=== PATIENT | male | born 1955 | race Caucasian/White ===

== ENCOUNTER 2019-12-18 18:11 | Inpatient (IN) | payer MEDICARE ==
[2019-12-18] VITALS (7 sets, daily range): BP systolic 124–140; BP diastolic 62–71; PULSE 68–79; TEMP 97.6
[2019-12-18] MEDS ORDERED: CAPSAICIN0.025% TOP (18:13)
[2019-12-18] MEDS ORDERED: NEURONTIN300 MG/CAP PO ×2 (18:14→18:16)
[2019-12-18] MEDS ORDERED: COREG12.5 MG PO (18:14)
[2019-12-18] MEDS ORDERED: GLUCOPHAGE XR500 M1 PO (18:17)
[2019-12-18] MEDS ORDERED: CRESTOR40 MG PO (18:18)
[2019-12-18] MEDS ORDERED: VIAGRA100 M1 PO (18:19)
[2019-12-18] MEDS ORDERED: ASPIRIN 32325 MG/TAB PO (18:20)
[2019-12-18] MEDS ORDERED: FLOMAX 0.40.4 MG/CAP PO (18:20)
[2019-12-18] MEDS ORDERED: OMEGA-3 1000 MG1 CAP PO (18:21)
[2019-12-19] VITALS (8 sets, daily range): BP systolic 103–138; BP diastolic 49–72; PULSE 58–74; TEMP 97.4–97.8
[2019-12-19 07:49] LABS: CALCIUM 8.8 mg/dL (8.4-10.2); CREATININE, serum 3.95 (0.66-1.25)
[2019-12-19 07:53] LABS: POTASSIUM 5.8 mmol/L (3.4-5.0)
--- NOTE | 2019-12-19 10:03 | NUR ---
Sitting up in bed with eyes open. Denies pain. Jhaveri to dependent drainage draining dark red urine. Patient denies needs at this time.
--- NOTE | 2019-12-19 11:27 | NUR ---
Practical Nursing Faculty met with patient to discuss discharge planning. Patient lives in [place] with his [place] (ph#[phone]). Patient's primary care physician is Dr. Gibson and he has his medications mailed to him by the [facility]. Patient has a cane, walker, and CPAP that he uses at home. Patient reports independence with ADLS but that it has become more difficult for him to get into his shower. Patient states he is considering putting in a walk in tub. Patient states he would like to update his DPOA paperwork. MERLYN provided a blank form which patient filled out independently. MERLYN and Norma BRICENO provided witness signature. MERLYN provided original and copies to patient then placed copy in patient's chart. Patient plans to return home upon discharge. No additional needs at this time.
[2019-12-19 11:50] LABS: PH 6 (5-8); SQUAMOUS EPITHELIAL None Seen /hpf; URINE APPEARANCE Cloudy; URINE BACTERIA Rare /hpf; URINE BILIRUBIN Negative (NEGATIVE); URINE BLOOD 3+ (NEGATIVE); URINE COLOR Red; URINE GLUCOSE 2+ (NEGATIVE); URINE KETONE Negative (NEGATIVE); URINE LEUKOCYTE ESTERASE 1+ (NEGATIVE); URINE NITRATE Negative (NEGATIVE); URINE PROTEIN(semi-quant) 2+ (NEGATIVE); URINE RBC >50 /hpf; URINE UROBILINOGEN Negative (NEGATIVE)
[2019-12-19 12:03] LABS: COLLECTION METHOD CATHETER
[2019-12-19 12:12] LABS: HEMOGLOBIN 11.3 g/dl (13.5-18.0); MEAN CELL VOLUME 89 fl (80.0-100.0); MEAN CORPUSCULAR HEMOGLOBIN 27 pg (27.0-31.0); MEAN CORPUSCULAR HGB CONC 31 g/dl (33.0-37.0); MEAN PLATELET VOLUME 10.6 fl (7.4-10.4); PLATELET COUNT 156 K/mm3 (130-400); RED BLOOD COUNT 4.12 M/mm3 (4.20-5.60); REDCELL DISTRIBUTION WIDTH-CV 14.2 % (11.5-14.5)
[2019-12-19 12:15] LABS: HEMATOCRIT 36.5 % (42.0-52.0)
[2019-12-19] MEDS ORDERED: ZESTRIL 10MG10 MG PO (13:08)
[2019-12-19 13:18] LABS: BAND 1 % (0-10); NEUTROPHILS 48 % (42.0-75.2)
[2019-12-19 13:24] LABS: LYMPHOCYTE 49 % (20.0-51.0)
[2019-12-19 13:25] LABS: BURR CELLS 1+; OVALOCYTES 1+; PLATELET ESTIMATE NORMAL (NORMAL)
[2019-12-19 13:26] LABS: POIKILOCYTOSIS 1+
--- NOTE | 2019-12-19 16:06 | NUR ---
Lying in bed with eyes open. Denies pain. Jhaveri to dependent drainage draining clear bloody urine. in room with the patient. Patient denies further needs.
--- NOTE | 2019-12-19 18:01 | NUR ---
Asked patient if he would like to get up to ambulate in halls. Patient declines at this time. Says that he does not feel comfortable walking in the halls with his bag, he does not want everyone to see it. Explained importance of ambulating to keep circulation, strength, and lungs open. Patient says that possibly tonight he would be more willing to get up to the bathroom and then ambulate in the halls. remains in room with the patient. Patient denies needs at this time.
[2019-12-20 05:19] VITALS: BP 109/72; PULSE 59; TEMP 97.5
--- NOTE | 2019-12-20 06:11 | NUR ---
Pt is currently sleeping in bed. Pt urine is still pink tinged. The urine was a little darker during moring rounds. Pt had 1750 output from his daniels at this time. Pt did have a soft formed bowel movement during the shift. Pt did ambulate to the restroom and he had no pain at this time. I did remove the pt stat-lock he stated that it was pulling. Cath care was provided and the new stat- lock was placed on his inner thigh on his right leg. Pt has his call light within reach and his bed is in lowest position
[2019-12-20 07:15] LABS: HEMOGLOBIN 10.8 g/dl (13.5-18.0); MEAN CELL VOLUME 87 fl (80.0-100.0); MEAN CORPUSCULAR HEMOGLOBIN 27 pg (27.0-31.0); MEAN CORPUSCULAR HGB CONC 32 g/dl (33.0-37.0); MEAN PLATELET VOLUME 10.3 fl (7.4-10.4); PLATELET COUNT 155 K/mm3 (130-400); RED BLOOD COUNT 3.94 M/mm3 (4.20-5.60); REDCELL DISTRIBUTION WIDTH-CV 14.2 % (11.5-14.5)
[2019-12-20 07:18] LABS: CALCIUM 8.4 mg/dL (8.4-10.2); CREATININE, serum 3.22 (0.66-1.25); POTASSIUM 5.2 mmol/L (3.4-5.0)
[2019-12-20 07:19] LABS: HEMATOCRIT 34.3 % (42.0-52.0)
[2019-12-20 07:47] VITALS: BP 110/49; PULSE 70; TEMP 97.6
--- NOTE | 2019-12-20 08:00 | NUR ---
Patient in bed resting. Alert and oriented x 3. Assessment complete. Jhaveri to dependent drainge with pink tinged urine in bag. states occassional bladder spasm. Small clot noted in tubing. Fluids infusing per orders. Denies pain or further needs at this time.
[2019-12-20 08:13] LABS: BAND 4 % (0-10); EOSINOPHIL 1 % (0-4); LYMPHOCYTE 57 % (20.0-51.0); NEUTROPHILS 36 % (42.0-75.2); PLATELET ESTIMATE NORMAL (NORMAL)
[2019-12-20 08:14] LABS: OVALOCYTES 1+
[2019-12-20 08:50] LABS: PATHOLOGY DIFF REVIEW OK
--- NOTE | 2019-12-20 11:51 | NUR ---
First visit from the environmental engineering intern. No needs right now.
[2019-12-20 16:09] VITALS: BP 133/53; PULSE 61; TEMP 97.9
--- NOTE | 2019-12-20 18:27 | NUR ---
Patient has done well throughout the day. Minimal needs. continues to complain of bladder spasms, levsin given per orders. Offered B&O suppository, patient refused. Jhaveri maintained to dependent drainage with pink urine noted, occassional small clots noted in line. Fluids infusing per orders. Denies further needs at this time. Will report off to cage shift manager.
[2019-12-20 19:41] VITALS: BP 148/67; PULSE 63; TEMP 97.8
--- NOTE | 2019-12-20 21:00 | NUR ---
Pt doing ok. Alert and oriented with VSS. Heart and lung sounds normal. Bowel sounds aud all quad. Pt has daniels cath to depend drainainge, red-tinged urine. Good output. Pt has IV to R forearm with d5 running. Pt has not had BM but is passing gas. Pedal pulses present. Pt denies needs, call light within reach, will coninue to monitor
[2019-12-20 23:43] VITALS: BP 127/67; PULSE 65; TEMP 98.3
--- NOTE | 2019-12-21 00:03 | NUR ---
Pt IV infiltrated. 22g restarted in L hand
[2019-12-21 04:40] VITALS: BP 121/65; PULSE 64; TEMP 97.4
--- NOTE | 2019-12-21 06:14 | NUR ---
Pt has done well throughout night. Slept well. Jhaveri to dep drainage. REd-tinged urine, no clots noted. Has cleared up since last night. Call light within reach, will continue to monitor
[2019-12-21 06:22] LABS: HEMOGLOBIN 10.9 g/dl (13.5-18.0); MEAN CELL VOLUME 87 fl (80.0-100.0); MEAN CORPUSCULAR HEMOGLOBIN 28 pg (27.0-31.0); MEAN CORPUSCULAR HGB CONC 32 g/dl (33.0-37.0); PLATELET COUNT 146 K/mm3 (130-400); REDCELL DISTRIBUTION WIDTH-CV 14.6 % (11.5-14.5)
[2019-12-21 06:50] LABS: CALCIUM 8.4 mg/dL (8.4-10.2); CREATININE, serum 2.54 (0.66-1.25); POTASSIUM 5.3 mmol/L (3.4-5.0)
[2019-12-21 06:59] LABS: EOSINOPHIL 2 % (0-4); LYMPHOCYTE 69 % (20.0-51.0); METAMYELOCYTE 1 % (0-0); NEUTROPHILS 26 % (42.0-75.2)
[2019-12-21 08:05] VITALS: BP 129/63; PULSE 71; TEMP 97.5
[2019-12-21 11:26] VITALS: BP 132/66; PULSE 57; TEMP 97.5
[2019-12-21 16:24] VITALS: BP 136/75; PULSE 72; TEMP 98
--- NOTE | 2019-12-21 17:04 | NUR ---
Patient showered independently, ambulated to doorway and back to bed. steady gait.
--- NOTE | 2019-12-21 18:28 | NUR ---
Patient has done well thoughout the day. Has been up ambulating in room throughout the day. States numbness to LLE, states this is chronic. Daniels maintined to depdent drainage with pink urine present throughout the day. Patient educated on daniels care and how to empty daniels bag. Denies further needs at this this time. Will report off to night baker.
[2019-12-21 20:19] VITALS: BP 140/70; PULSE 65; TEMP 97.8
--- NOTE | 2019-12-21 20:19 | NUR ---
Pt doing well this evening. Resting in bed upon entry. Alert and oriented with vss. heart and lung sounds normal, on tele-normal sinus. PT bowel sounds aud all quad. Jhaveri in place, clear red-tinged urine. PT denies pain, states he feels good. Took pm meds fine. Denies needs, call light within reach, will continue to monitor
[2019-12-22 00:26] VITALS: BP 113/72; PULSE 71; TEMP 97.7
[2019-12-22 03:37] VITALS: BP 128/65; PULSE 66; TEMP 97.6
--- NOTE | 2019-12-22 04:55 | NUR ---
Pt has had uneventful night. No complaints. Slept well. Denies needs. Call light within reach, will continue to monitor
[2019-12-22 06:03] LABS: HEMOGLOBIN 10.9 g/dl (13.5-18.0); MEAN CELL VOLUME 87 fl (80.0-100.0); MEAN CORPUSCULAR HEMOGLOBIN 28 pg (27.0-31.0); MEAN CORPUSCULAR HGB CONC 32 g/dl (33.0-37.0); MEAN PLATELET VOLUME 9.9 fl (7.4-10.4); PLATELET COUNT 155 K/mm3 (130-400); RED BLOOD COUNT 3.91 M/mm3 (4.20-5.60); REDCELL DISTRIBUTION WIDTH-CV 14.5 % (11.5-14.5)
[2019-12-22 06:13] LABS: CALCIUM 8.3 mg/dL (8.4-10.2); CREATININE, serum 2.22 (0.66-1.25); POTASSIUM 5.3 mmol/L (3.4-5.0)
[2019-12-22 07:06] VITALS: BP 129/68; PULSE 63; TEMP 98
--- NOTE | 2019-12-22 08:06 | NUR ---
Patient in bed eating breakfast. Alert and oriented x 3. Assessment complete. Jhaveri to dependent drainage with clear pink urine in bag. Fluids infusing per orders to left hand IV. Denies pain at this time. Refuses BP meds at this time. Denies further needs at this time.
[2019-12-22 08:21] LABS: LYMPHOCYTE 68 % (20.0-51.0); NEUTROPHILS 30 % (42.0-75.2)
[2019-12-22 08:22] LABS: OVALOCYTES 1+; PLATELET ESTIMATE NORMAL (NORMAL)
[2019-12-22 11:23] VITALS: BP 129/78; PULSE 70; TEMP 97.8
--- NOTE | 2019-12-22 13:40 | NUR ---
Patient sitting up in recliner.
[2019-12-22 16:12] VITALS: BP 142/69; PULSE 66; TEMP 97.8
--- NOTE | 2019-12-22 17:28 | NUR ---
Patient has done well throughout the day. Has been up ambulating in halls and up to recliner throughout the day. Denies pain. Jhaveri continues draining clear pink urine. Denies further needs at this time. will report off to night assistant.
--- NOTE | 2019-12-22 18:27 | NUR ---
Patient up ambulating in halls.
--- NOTE | 2019-12-22 19:15 | NUR ---
Received report from JANAK Mitchell. Pt was lying in bed at this time. We repositioned him at this time. Pt did stat that his pain was at a 6 out of 10 in pain and requested to have something for pain. Pt vitals were all within normal limits. Pt lungs sounds were clear and heart sounds were normal S1 and S2 sounds. All findings see on shift assessment. Pt did have some light bruisig on his right foot, bruising on his right shoulder. His dressing was clean dry and intact. Pt did not want a snack at this time. Pts urine was dark yellow so fluids were encourged at this time. Will follow up with pts pain and bring him pain medication. Pt call light is within reach and his bed is in lowest position and his bed alarm is on
--- NOTE | 2019-12-22 19:25 | NUR ---
Pt rated his pain a 6 out of 10 at this time. Pt was given one [place] at this time. Will follow up with pt and see if his pain is better. Pt has his call light within reach and his bed is in lowest position and his bed alarm is on
[2019-12-22 20:01] VITALS: BP 148/68; PULSE 63; TEMP 98.4
[2019-12-23 00:07] VITALS: BP 143/69; PULSE 72; TEMP 98.7
--- NOTE | 2019-12-23 02:43 | NUR ---
Received report from JANAK Johnson. Pt had no abnormal findings during the assessment. Pt daniels was empitied at this time and charted. Urine is a pink tinged color. Pt stated that he has not had any pain. He took his evening medication well. Pt stated that he was very tired and was ready for bed. Pt has had no complaints of pain during the night. Pt has been resting well during the night. Pt is easy to arouse for vitals. Pt has is call light within reach and bed is in lowest position
[2019-12-23 03:44] VITALS: BP 104/53; PULSE 74; TEMP 98
[2019-12-23 07:07] LABS: HEMATOCRIT 39.4 % (42.0-52.0); HEMOGLOBIN 12.6 g/dl (13.5-18.0); MEAN CELL VOLUME 88 fl (80.0-100.0); MEAN CORPUSCULAR HEMOGLOBIN 28 pg (27.0-31.0); MEAN CORPUSCULAR HGB CONC 32 g/dl (33.0-37.0); MEAN PLATELET VOLUME 10.3 fl (7.4-10.4); PLATELET COUNT 227 K/mm3 (130-400); RED BLOOD COUNT 4.48 M/mm3 (4.20-5.60); REDCELL DISTRIBUTION WIDTH-CV 14.6 % (11.5-14.5)
[2019-12-23 07:08] VITALS: BP 158/80; PULSE 96; TEMP 97.9
--- NOTE | 2019-12-23 07:11 | NUR ---
Pt ambulated down the rivero with me this morning. Pt tolerated this walk with no complaints of pain. He stated that if felt really good to be able to ambulate. His urine is still pink tinged. He has no complaints of pain at this time. Pt has his call light within reach and his bed is in lowest position. Reported off to JANAK Velazco.
[2019-12-23 07:22] LABS: CALCIUM 9.2 mg/dL (8.4-10.2); CREATININE, serum 2.22 (0.66-1.25)
--- NOTE | 2019-12-23 07:27 | NUR ---
CRITICAL LAB REULT OF 21.9 CALLED TO [facility]. NO ORDERS GIVEN AT THIS TIME.
--- NOTE | 2019-12-23 07:45 | NUR ---
DISCONTINUE FLAVIO THIS AM TORB TO THIS NURSE.
--- NOTE | 2019-12-23 08:30 | NUR ---
PATIENT SITTING UP IN CHAIR. PATIENT A&OX4. VSS. TELE IN PLACE. BOWEL SOUNDS ACTIVE. PATIENT TOLERATING DIET. INDWELLING MUNIZ CATHETER DRAINING CLEAR PINK URINE TO MUNIZ BAG. TRACE EDEMA TO FEET BILATERALLY. MUNIZ CATHETER DISCONTINUED PER DOCTOR ORDER. 10 MLS OF STERILE WATER ASPIRATED FROM BALLOON. TIP INTACT. PERICARE PROVIDED. PATIENT HAD DISCOMFORT WITH MUNIZ REMOVAL. PATIENT GIVEN PRN DOSE OF PO PAIN MEDICATION. CALL LIGHT WITHIN REACH. PATIENT DENIES ANY NEEDS AT THIS TIME.
[2019-12-23 09:43] LABS: BAND 2 % (0-10); EOSINOPHIL 3 % (0-4); NEUTROPHILS 31 % (42.0-75.2); PLATELET ESTIMATE NORMAL (NORMAL)
[2019-12-23 09:44] LABS: LYMPHOCYTE 60 % (20.0-51.0)
[2019-12-23 11:21] VITALS: BP 121/63; PULSE 70; TEMP 97.5
--- NOTE | 2019-12-23 13:20 | NUR ---
LEFT HAND INT DISCONTINUED PER PENDING DISCHARGE. PATIENT TOLERATED WELL. DISCHARGE INSTRUCTIONS REVIEWED WITH PATIENT. ALL QUESTIONS ANSWERED. PATIENT PERSONAL BELONGINGS GATHERED. PATIENT AMBULATED WITH SURGICAL STAFF TO PERSONAL VEHICLE. PATIENT DISCHARGED.
== END 2019-12-23 13:25 | disposition home or self-care (01) | DRG 660 ==
LOC: SDCO 18:11 → SURG 18:11 → SDCO 12-19 11:56 → SURG 12-19 11:57
PROVIDERS: Nurse Practitioner Family; Physician Assistant; ADMIT Urology
PROC: 0T788DZ Dilation of Bilateral Ureters with Intraluminal Device, Via Natural or Artificial Opening Endoscopic (ICD-10-PCS; principal; 2019-12-18 19:00)
PROC: BT141ZZ Fluoroscopy of Kidneys, Ureters and Bladder using Low Osmolar Contrast (ICD-10-PCS; 2019-12-18 19:00)
DX: N17.9 Acute kidney failure, unspecified (principal); N20.1 Calculus of ureter; C91.10 Chronic lymphocytic leukemia of B-cell type not having achieved remission; N39.0 Urinary tract infection, site not specified; E11.40 Type 2 diabetes mellitus with diabetic neuropathy, unspecified; Z87.891 Personal history of nicotine dependence; Z88.2 Allergy status to sulfonamides; Z88.8 Allergy status to other drugs, medicaments and biological substances; E11.22 Type 2 diabetes mellitus with diabetic chronic kidney disease; I12.9 Hypertensive chronic kidney disease with stage 1 through stage 4 chronic kidney disease, or unspecified chronic kidney disease; N18.9 Chronic kidney disease, unspecified; E78.5 Hyperlipidemia, unspecified; E87.5 Hyperkalemia; D69.6 Thrombocytopenia, unspecified
CPT/HCPCS: OP; 99223; 99232-AI; A4216; C1769; C2617; J0696; J1100; J1815; J2405; J2704; J3010; J7030; Q9967

== ENCOUNTER 2020-01-08 07:13 | Day surgery (SDC) | payer MEDICARE, OTHER ==
[~2020-01-08] VITALS: Ht 185.4 cm; Wt 109.9 kg
[~2020-01-08 07:13] MED LIST: ASPIRIN 32325 MG/TAB PO; CAPSAICIN0.025% TOP; COREG12.5 MG PO; CRESTOR40 MG PO; FLOMAX 0.40.4 MG/CAP PO; GLUCOPHAGE XR500 M1 PO; NEURONTIN300 MG/CAP PO; OMEGA-3 1000 MG1 CAP PO; VIAGRA100 M1 PO; ZESTRIL 10MG10 MG PO
[2020-01-08 07:53] VITALS: BP 146/76; PULSE 77; TEMP 97.7
[2020-01-08 08:02] LABS: CALCIUM 9.6 mg/dL (8.4-10.2); CREATININE, serum 2.29 (0.66-1.25); POTASSIUM 4.1 mmol/L (3.4-5.0)
--- NOTE | 2020-01-08 08:14 | NUR ---
TO RM AT 0718 AMBULATING WITH A CANE. CALL LIGHT IN REACH AND IN CAR WAITING TO TAKE PATIENT HOME UPON DISCHARGE.
--- NOTE | 2020-01-08 09:17 | NUR ---
RECEIVED CALL FROM AND SHE HAS BEEN UPDATED.
[2020-01-08 10:27] VITALS: BP 139/65; PULSE 62; TEMP 97.9
--- NOTE | 2020-01-08 10:27 | NUR ---
TO RM 7 PER CART FROM PACU. ALERT ORIENTED X3 AND TALKING WITH STAFF. PATIENT VOIDED IN PACU. DENIES PAIN OR DISCOMFORT AT THIS TIME. DENIES NAUSEA OR VOMITING.
[2020-01-08 10:30] VITALS: BP 146/75; PULSE 58
--- NOTE | 2020-01-08 10:30 | NUR ---
RECEIVED OJ AND TOAST/BUTTER-JELLY. ELEVATED HOB. IV PATENT. CONTINUES TO DENY PAIN OR DISCOMFORT.
[2020-01-08] MEDS ORDERED: PYRIDIUM 100MG100 MG PO (10:39)
[2020-01-08] MEDS ORDERED: NORCO 325 MG-51 TAB PO (10:40)
[2020-01-08 10:45] VITALS: BP 144/66; PULSE 63
--- NOTE | 2020-01-08 10:45 | NUR ---
ATE 100% AND TOLERATED WELL.
[2020-01-08 11:00] VITALS: BP 128/62; PULSE 64
--- NOTE | 2020-01-08 11:00 | NUR ---
PATIENT QUIETLY WATCHING TV. DENIES THE URGE TO URINATE AT THIS TIME.
--- NOTE | 2020-01-08 11:13 | NUR ---
Updated of patient's progress.
--- NOTE | 2020-01-08 11:30 | NUR ---
VOIDED 100CC OF LIGHT COLORED HEMATURIA. RECEIVED DISCHARGE INSTRUCTIONS AND VERBALIZED UNDERSTANDING. DISCONTINUED IV AND INT- CATHETER INTACT. CALLED TO HAVE PATIENT PICKED UP AT ER ENTRANCE. DISCHARGED WITH URINAL PER PATIENT REQUEST OFFICE WILL CALL PATIENT WITH A FOLLOW UP TIME/DATE.
--- NOTE | 2020-01-08 11:37 | NUR ---
DISCHARGED PER WC BY NURSING STAFF TO PRIVATE CAR IN CARE OF CHRISTEL.
== END 2020-01-08 11:38 | disposition home or self-care (01) ==
LOC: SDCO 07:13
PROVIDERS: Nurse Anesthetist, Certified Registered
DX: N13.0 Hydronephrosis with ureteropelvic junction obstruction (principal); E11.22 Type 2 diabetes mellitus with diabetic chronic kidney disease; I12.9 Hypertensive chronic kidney disease with stage 1 through stage 4 chronic kidney disease, or unspecified chronic kidney disease; N18.9 Chronic kidney disease, unspecified; E11.40 Type 2 diabetes mellitus with diabetic neuropathy, unspecified; E87.5 Hyperkalemia; G47.33 Obstructive sleep apnea (adult) (pediatric); Z87.891 Personal history of nicotine dependence; Z79.899 Other long term (current) drug therapy; Z79.82 Long term (current) use of aspirin
CPT/HCPCS: C1769; J0690; J1100; J1885; J2405; J2704; J3010; J7030

== ENCOUNTER 2020-04-08 12:33 | Day surgery (SDC) | payer MEDICARE, OTHER ==
[~2020-04-08] VITALS: Ht 185.4 cm; Wt 109.2 kg
[~2020-04-08 12:33] MED LIST changes: +MACRODANTIN100 PO; +MACRODANTIN50 MG/CA1 PO; +NORCO 325 MG-51 TAB PO; +PYRIDIUM 100MG100 MG PO
[2020-04-08 13:08] VITALS: BP 137/73; PULSE 64; TEMP 97.5
[2020-04-08 17:20] VITALS: BP 160/62; PULSE 63; TEMP 97.3
--- NOTE | 2020-04-08 17:20 | NUR ---
TO RM 5 PER CART FROM PACU. ALERT ORIENTED X3,TALKING TO STAFF. DENIES PAIN OR DISCOMFORT AT CURRENT TIME. DENIES NAUSEA OR VOMITING. RECEIVED GRAPE JUICE. MUNIZ CATHETER HAS BLOODY URINE.
[2020-04-08] MEDS ORDERED: BACITRACIN TOPIC1 TU TOP (17:22)
[2020-04-08] MEDS ORDERED: NORCO 325 MG-51 TAB PO (17:22)
[2020-04-08 17:35] VITALS: BP 163/67; PULSE 50
--- NOTE | 2020-04-08 17:35 | NUR ---
RECEIVED A SECOND GLASS OF GRAPE JUICE.
[2020-04-08 17:50] VITALS: BP 156/74; PULSE 51
--- NOTE | 2020-04-08 17:50 | NUR ---
PATIENT SATS 92 % AND ENCOURAGED PATIENT TO TAKE A DEEP BREATHS . AFTER A FEW DEEP BREATHS SATS 98%.
[2020-04-08 18:00] VITALS: BP 161/59; PULSE 45
--- NOTE | 2020-04-08 18:12 | NUR ---
REPORT GIVEN TO AILEEN BRICENO
[2020-04-08 18:15] VITALS: BP 171/59; PULSE 52
--- NOTE | 2020-04-08 18:15 | NUR ---
Visit with patient in [place] [facility]. Pt taking food and drink well. Pt has no complaints. Discussing discharge, the pt requests that we go over all discharge information with his at her car (due to no visitor restrictions in place) when the patient is transferred out of the hospital.
--- NOTE | 2020-04-08 18:40 | NUR ---
Pt transferred out of hospital via wheelchair and this RN to waiting private vehicle driven by .
--- NOTE | 2020-04-08 19:10 | NUR ---
Discharge instructions finished with pt, , and this RN. All questions answered to their satisfaction. Handed to pt are a thank you card, discharge instructions, diagnosis information, and a pt health summary. The office will call the pt to schedule his follow-up appt for Tuesday. Also given to pt are a leg bag, daniels drainage container, and multiple alcohol prep pads. Instructions on cath care and drainage bag switch (daniels bag to leg bag and vice versa) explained to pt and . Understanding voiced by both.
== END 2020-04-08 19:10 | disposition home or self-care (01) ==
LOC: SDCO 12:33
DX: A63.0 Anogenital (venereal) warts (principal); E78.00 Pure hypercholesterolemia, unspecified; J44.9 Chronic obstructive pulmonary disease, unspecified; G47.33 Obstructive sleep apnea (adult) (pediatric); G89.29 Other chronic pain; I12.9 Hypertensive chronic kidney disease with stage 1 through stage 4 chronic kidney disease, or unspecified chronic kidney disease; E11.22 Type 2 diabetes mellitus with diabetic chronic kidney disease; N18.9 Chronic kidney disease, unspecified; E11.42 Type 2 diabetes mellitus with diabetic polyneuropathy; Z88.2 Allergy status to sulfonamides; E66.9 Obesity, unspecified; Z88.8 Allergy status to other drugs, medicaments and biological substances; Z87.891 Personal history of nicotine dependence; Z68.32 Body mass index [BMI] 32.0-32.9, adult
CPT/HCPCS: J0690; J1100; J1170; J2405; J2704; J3010; J7030

== ENCOUNTER 2020-05-13 08:27 | Day surgery (SDC) | payer MEDICARE, OTHER ==
[~2020-05-13] VITALS: Ht 185.4 cm; Wt 108.0 kg
[~2020-05-13 08:27] MED LIST changes: +BACITRACIN TOPIC1 TU TOP
[2020-05-13] MEDS ORDERED: AMOXICILLIN 8751 TAB PO (09:21)
[2020-05-13 09:41] VITALS: BP 115/66; PULSE 63; TEMP 98.1
[2020-05-13 13:00] VITALS: BP 124/87; PULSE 64; TEMP 98.1
--- NOTE | 2020-05-13 13:00 | NUR ---
Pt to [facility] bay 6 via cart from PACU. Pt awake and alert. Pt rates pain 1/10 to groin. Dressing to groin is clean, dry and intact with mesh underwear in place. Juice and muffin given per pt request. Will continue to monitor. Call light within reach.
[2020-05-13 13:15] VITALS: BP 135/63; PULSE 66
--- NOTE | 2020-05-13 13:15 | NUR ---
Pt continues to rest. More juice given per pt request. Will continue to monitor. Call light within reach.
[2020-05-13 13:30] VITALS: BP 110/62; PULSE 66
--- NOTE | 2020-05-13 13:30 | NUR ---
Pt continues to rest. Tolerating food and po fluids without difficulties. Urine drianing to daniels bag is pale pink in color. Will continue to monitor.
[2020-05-13 13:45] VITALS: BP 104/49; PULSE 69
--- NOTE | 2020-05-13 13:45 | NUR ---
Pt continues to rest. Small amount of pale pink drainage noted to be seeping through 4x4's at tip of penis. Will change dressing prior to DC. Call light within reach.
[2020-05-13 14:00] VITALS: BP 109/53; PULSE 63
--- NOTE | 2020-05-13 14:00 | NUR ---
IV site discontinued with all parts intact. Dressing to glans penis changed, with new bacitracian ointment and silver silvadine cream applied. Education provided on dressing changes, changing to leg bag/daniels bag, and daniels care provided. Pt voices understanding. Pt requesting pain medication to home home with. Dr. Swian notified, and will come write pt a script. Pt up to dress. Will continue to monitor.
--- NOTE | 2020-05-13 14:57 | NUR ---
wrote script for [place] for pt to take at home PRN. Discharge instructions reviewed with pt and . Both voice understanding. Pt escorted to private car via wheel chair.
== END 2020-05-13 14:59 | disposition home or self-care (01) ==
LOC: SDCO 08:27
DX: A63.0 Anogenital (venereal) warts (principal); E11.9 Type 2 diabetes mellitus without complications; N28.9 Disorder of kidney and ureter, unspecified; I10 Essential (primary) hypertension; E78.00 Pure hypercholesterolemia, unspecified; R97.20 Elevated prostate specific antigen [PSA]; G47.33 Obstructive sleep apnea (adult) (pediatric); E66.9 Obesity, unspecified; Z79.899 Other long term (current) drug therapy; Z88.2 Allergy status to sulfonamides; Z88.8 Allergy status to other drugs, medicaments and biological substances; Z87.891 Personal history of nicotine dependence
CPT/HCPCS: J0690; J2370; J2405; J2704; J3010; J7030

== ENCOUNTER 2020-09-02 09:37 | Day surgery (SDC) | payer MEDICARE, OTHER ==
[2020-09-02] VITALS (9 sets, daily range): BP systolic 102–145; BP diastolic 50–88; PULSE 54–71; TEMP 98.2–98.3
[~2020-09-02] VITALS: Ht 185.4 cm; Wt 109.5 kg
[~2020-09-02 09:37] MED LIST changes: +AMOXICILLIN 8751 TAB PO
[2020-09-02] MEDS ORDERED: AMBIEN 5MG TABLE5 MG PO (10:11)
[2020-09-02 10:57] LABS: CALCIUM 9.4 mg/dL (8.4-10.2); CREATININE, serum 1.72 (0.66-1.25); POTASSIUM 4.4 mmol/L (3.4-5.0)
--- NOTE | 2020-09-02 12:26 | NUR ---
Patient is resting with eyes closed and spouse called to inform her that patient's surgery has been delayed.
[2020-09-02] MEDS ORDERED: NORCO 325 MG-51 TAB PO (14:47)
--- NOTE | 2020-09-02 15:47 | NUR ---
Patient returns to room 2 per cart and is awake and alert. Temp 97.6 and room air sats 96%. IV fluids infusing #18G RH of NS at TKO. CBI dripping to keep urine pink. Mesh panties in place and Silvadene cream noted on laser sites of penis. Taking sips of water. Denies pain or nausea at present time.
--- NOTE | 2020-09-02 16:02 | NUR ---
Room air sats 98%. CBI continues to drip to keep urine pink. Sipping on ice water.
--- NOTE | 2020-09-02 16:17 | NUR ---
Morphine 2mg given at 1616 for complaints of pain at 4/10. States the pain is intense.
--- NOTE | 2020-09-02 16:32 | NUR ---
Patient is resting and states that the Morphine was effective. Talking on his cell phone.
--- NOTE | 2020-09-02 16:47 | NUR ---
Resting comfortabley. No further complaints. CBI infusing and urine pink. IV infusing at TKO.
--- NOTE | 2020-09-02 16:56 | NUR ---
Patient transferred to room 331 with all personal belongings.
--- NOTE | 2020-09-02 17:30 | NUR ---
Patient arrived to Surgical 331 from PACU at this time, alert/oriented, vital signs stable, pain controlled, CBI running and output is light pink, patient tolerating CL diet/ will advance, denies other needs at this time and will cotninue to monitor
--- NOTE | 2020-09-02 19:45 | NUR ---
Resting in bed. Assessment complete. Lungs clear. Heart sounds normal. Bowels active x4. Pulses present throughout. Left lower extremity edema +1. Patient reports recent surgery to left foot. Dressing CDI at this time. Jhaveri with CBI currently. Output light pinkish with sediment. Jhaveri care complete and ointments per Dr. Díaz orders applied. Denies other needs at this time. Call light in reach. INT left hand without complications.
--- NOTE | 2020-09-02 23:24 | NUR ---
CBI pinkish red. Bags replaced. Will monitor.
--- NOTE | 2020-09-03 00:08 | NUR ---
Resting in bed. Denies needs. Call light in reach.
[2020-09-03 01:34] VITALS: BP 115/65; PULSE 61; TEMP 97.5
--- NOTE | 2020-09-03 03:59 | NUR ---
Resting in bed. CBI continues. Drilling Field Operator pnik/yellow. Rate decreased. Will monitor.
[2020-09-03 04:49] VITALS: BP 115/56; PULSE 60; TEMP 97.5
--- NOTE | 2020-09-03 05:41 | NUR ---
Patient CBI continued throughout night. Light pink this AM. Reported mild pains but denied need for intervention. Otherwise uneventful night. Resting in bed this AM. Call light in reach.
--- NOTE | 2020-09-03 07:18 | NUR ---
Report given to JANAK Velazco
[2020-09-03 08:33] VITALS: BP 116/74; PULSE 70; TEMP 97.6
--- NOTE | 2020-09-03 09:50 | NUR ---
PATIENT SHIFT ASSESSMENT COMPLETED AND AM MEDICATIONS ADMINISTERED AT THIS TIME. PATIENT REPORTS MILD DISCOMFRT RATED A 1-2/10 IN THE GROIN AND GENITALIA AT REST THAT INCREASES WHEN MOVING OR THE MUNIZ CATHETER IS TOUCHED. PATIENT A&OX4. VSS. EDEMA TO GENITALIA NOTED. INDWELLING 3-WAY MUNIZ CATHETER TO DEPENDENT DRAINAGE WITH CBI INFUSING AT A SLOW RATE. PEACH COLORED DRAINAGE PRESENT WITH MUCOUS IN THE MUNIZ BAG. CATHETER AND CHAR-CARE PROVIDED AT THIS TIME. OINTMENTS APPLIED. 4X4 GAUZE APPLIED UNDER TESTICLES TO ELEVATE THE AREA AND REDUCE SWELLING. MESH PANTIES IN PLACE. CBI DISCONTINUED AT THIS TIME AND CATHETER PLUGGED. PATIENT EDUCATED ON CATHETER CARE FOR DISCHARGING HOME WITH MUNIZ IN PLACE. PATIENT REPORTS ATHLETES FOOT TO LEFT FOOT. LEFT FOOT IS DRESSED WITH GAUZE AND VENICE WRAP. SOCKS CHANGED. INT TO LEFT HAND. CALL LIGHT WITHIN REACH. PATIENT DENIES ANY OTHER NEEDS AT THIS TIME. PATIENT IS WAITING TO HEAR FROM HIS FOR DISCHARGE LATER TODAY.
--- NOTE | 2020-09-03 11:52 | NUR ---
First visit from the wood heel fitter machine. No needs right now.
[2020-09-03 12:00] VITALS: BP 127/60; PULSE 62; TEMP 98.1
--- NOTE | 2020-09-03 13:35 | NUR ---
SW met with the patient to discuss discharge plan. The patient lives in [place] with his , Gris (ph#[phone]). He reports independence with ADLs and has a cane, FWW, 4WW, and wheelchair. He states that he has been receiving home health from [facility] for dressing changes. The patient's civilian PCP is Dr. Mark Kim and he also goes to the [facility]. He receives his medications from [facility] in [place] and from the [place]. The patient's DPOA-HC is in EMR and it designates his and daughter, Arin Thomas (ph#[phone]). The patient plans to return home with his upon discharge today and resume home health services from [facility]. No additional needs at this time.
--- NOTE | 2020-09-03 14:30 | NUR ---
LEFT HAND INT DISCONTINUED PER PENDING DISCHARGE. TIP INTACT. PATIENT TOLERATED WELL. DISCHARGE INSTRUCTIONS REVIEWED. PATIENT PERSONAL BELONINGS GATHERED. PATIENT TAKEN TO PERSONAL VEHICLE VIA WHEELCHAIR. PATIENT DISCHARGED.
== END 2020-09-03 14:30 | disposition home or self-care (01) ==
LOC: SDCO 09:37 → JCC 14:45 → SDCO 09-03 14:30
PROVIDERS: Nurse Anesthetist, Certified Registered
DX: A63.0 Anogenital (venereal) warts (principal); N40.1 Benign prostatic hyperplasia with lower urinary tract symptoms; R39.14 Feeling of incomplete bladder emptying; R39.12 Poor urinary stream; R35.1 Nocturia; E11.22 Type 2 diabetes mellitus with diabetic chronic kidney disease; N18.9 Chronic kidney disease, unspecified; I12.9 Hypertensive chronic kidney disease with stage 1 through stage 4 chronic kidney disease, or unspecified chronic kidney disease; Z20.828 Contact with and (suspected) exposure to other viral communicable diseases; E78.00 Pure hypercholesterolemia, unspecified; E66.9 Obesity, unspecified; Z88.2 Allergy status to sulfonamides; Z88.8 Allergy status to other drugs, medicaments and biological substances; Z87.891 Personal history of nicotine dependence; Z85.6 Personal history of leukemia
CPT/HCPCS: OP; J0690; J1100; J1170; J2270; J2405; J2704; J3010; J7030

== ENCOUNTER 2020-09-16 14:16 | Outpatient (CLI) | payer MEDICARE, OTHER ==
[~2020-09-16] VITALS: Ht 185.4 cm; Wt 109.0 kg
[~2020-09-16 14:16] MED LIST changes: +AMBIEN 5MG TABLE5 MG PO
[2020-09-16 15:18] VITALS: BP 116/64; PULSE 70; TEMP 98.3
--- NOTE | 2020-09-16 15:54 | NUR ---
Pt presented by wheelchair for scheduled instillation of 5FU. Pt reports that his original daniels came out and orders for reinsertion were recieved. Pt was concerned about size of balloon being used but after call to Dr Brunson' office, the ordered size was verified correct. Assessment was completed, consent reviewed and signed and printed information was provided and reviewed regarding chemotherapy precautions to be followed at home. #16 fr/10cc coude tip cathweter was inserted with initial return of slightly pink urine followed by pale yellow, clear urine draining into drainage bag.. Catheter was clamped and 5FU was instilled at 1510 using chemotherapy PPE and precautions. Pt tolerated instillation well. Has been repositioning every 15 minutes with encouragement.
--- NOTE | 2020-09-16 16:42 | NUR ---
Patient has completed the 1 hour dwell time and the bladder was drained by unclamping the drainage bag and draining 400ml of clear, light yellow urine. No bleeding noted although pt did have pinkish colored urine immediately after daniels was inserted which cleared quickly. Reviewed chemotherapy precautions again with pt and provided chemotherapy tested gloves to use at home with 5FU and an extra drainage bag for daniels. Chemotherapy urine was drained and then bag exchange was done and chemotherapy urine was disposed of in red bag and placed in yellow container. Pt assisted with clothing. He was transported to his 's car by wheelchair and discharged in stable condition.
== END 2020-09-16 16:30 | disposition home or self-care (01) ==
LOC: EUO 14:16
DX: A63.0 Anogenital (venereal) warts (principal); N36.9 Urethral disorder, unspecified
CPT/HCPCS: J9190

== ENCOUNTER 2020-12-09 11:57 | Day surgery (SDC) | payer MEDICARE, OTHER ==
[~2020-12-09] VITALS: Ht 185.4 cm; Wt 121.4 kg
[2020-12-09 12:29] VITALS: BP 126/73; PULSE 71; TEMP 97.5
[2020-12-09] MEDS ORDERED: PRIL40 PO (12:53)
--- NOTE | 2020-12-09 12:54 | NUR ---
TO RM 5 AT 12:03- CALL LIGHT IN REACH
[2020-12-09 15:15] VITALS: BP 127/60; PULSE 62; TEMP 97.3
--- NOTE | 2020-12-09 15:15 | NUR ---
PATIENT TRANSPORTED PER CART FROM PACU TO BAY 5 ACCOMPANIED BY STERILE PROCESSING TECH. PATIENT ALERT AND TALKING WITH STAFF. PATIENT DRINKING WATER. DENIES DISCOMFORT AND NAUSESA. MONITORS APPLIED. VSS ON ROOM AIR. 1520 PATIENT GIVEN OJ AND COFFEE AND MUFFIN.
[2020-12-09 15:30] VITALS: BP 126/74; PULSE 60
[2020-12-09 15:45] VITALS: BP 142/62; PULSE 61
--- NOTE | 2020-12-09 15:46 | NUR ---
VSS ON ROOM AIR. PATIENT TOLERATES MUFFIN AND DRINKS WITHOUT PROBLEMS. PATIENT DENIES DISCOMFORT AND NAUSEA. PATIENT GIVEN 4 LITER DEPENDENT DRAINAGE BAG, 10CC SYRINGE, ANTIBIOTIC OINTMENT AND URINAL TO TAKE HOME. CALLED AND GIVEN UPDATE.
--- NOTE | 2020-12-09 15:50 | NUR ---
PATIENT TALKS WITH STAFF. IV DC'D WITH CATHETER TIP INTACT. PRESSURE AND BANDAGE APPLIED. DISCHARGE INSTRUCTIONS GIVEN VERBAL AND DISCHARGE PACKET PROVIDED. QUESTIONS ANSWERED AND PATIENT VOICED UNDERSTANDING.
--- NOTE | 2020-12-09 16:00 | NUR ---
PATIENT'S LEG BAG EMPTIED. ACCIDENTLY SPILLED. PATIENT CLEANED. PATIENT CHANGES INTO STREET CLOTHES. PATIENT DISCHARGED PER WHEEL CHAIR TO PRIVATE VECHILE DRIVEN BY .
== END 2020-12-09 16:06 | disposition home or self-care (01) ==
LOC: SDCO
DX: A63.0 Anogenital (venereal) warts (principal); R39.12 Poor urinary stream; R35.1 Nocturia; E11.40 Type 2 diabetes mellitus with diabetic neuropathy, unspecified; I10 Essential (primary) hypertension; J44.9 Chronic obstructive pulmonary disease, unspecified; G47.33 Obstructive sleep apnea (adult) (pediatric); E66.9 Obesity, unspecified; Z85.07 Personal history of malignant neoplasm of pancreas; Z20.822 Contact with and (suspected) exposure to COVID-19; Z85.828 Personal history of other malignant neoplasm of skin; Z90.89 Acquired absence of other organs; Z79.899 Other long term (current) drug therapy; Z88.8 Allergy status to other drugs, medicaments and biological substances; Z88.2 Allergy status to sulfonamides; Z87.891 Personal history of nicotine dependence
CPT/HCPCS: J0690; J2704; J3010; J7030

== ENCOUNTER 2021-05-12 11:00 | Day surgery (SDC) | payer OTHER ==
[~2021-05-12] VITALS: Ht 185.4 cm; Wt 116.8 kg
[~2021-05-12 11:00] MED LIST changes: +PRIL40 PO
[2021-05-12] MEDS ORDERED: MSM1000 MG PO (11:50)
[2021-05-12 11:51] VITALS: BP 136/70; PULSE 63; TEMP 98.1
[2021-05-12] MEDS ORDERED: PYRIDIUM 100MG100 MG PO (13:35)
[2021-05-12 14:18] VITALS: BP 135/76; PULSE 51; TEMP 97.8
--- NOTE | 2021-05-12 14:18 | NUR ---
The patient arrived back to [place] [facility] from the recovery room at this time. Post operative vital signs were started at this time. The patient's has a daniels catheter in place and secured to his left leg and draining yellow, clear urine. The patient requests to try some grape juice at this time. The patient's is at his bedside at this time. Call light is within reach. Will continue to monitor the patient.
[2021-05-12 14:33] VITALS: BP 135/72; PULSE 51
--- NOTE | 2021-05-12 14:33 | NUR ---
The patient appeared to tolerate the juice well. The patient states that he has "had a daniels before and is good with with it at home". Will continue to monitor the patient.
[2021-05-12 14:48] VITALS: BP 126/65; PULSE 56
--- NOTE | 2021-05-12 14:48 | NUR ---
The patient was given a muffin and more juice at this time. The patient's vital signs appear stable. Call light remains within reach. at bedside. Will continue to monitor the patient.
--- NOTE | 2021-05-12 15:00 | NUR ---
Discharge instructions were reviewed with the patient and his at this time. They both verbalized understanding and questions were answered at this time. The patient does not want to switch to a leg bag btu was sent with one home. The patient's daniels was emptied with 100 ml of yellow, clear urine drained. The patient's IV was removed and a pressure dressing was applied to the site. The nurse instructed the patient to get dressed and notify the staff when he is ready to be escorted out.
--- NOTE | 2021-05-12 15:20 | NUR ---
The patient was escorted out via wheelchair to a private vehicle by JANAK Goodman. The patient's belongings and discharge papework were sent with him. The patient's is present to drive him home.
[2021-05-12 15:59] VITALS: BP 135/76; PULSE 51; TEMP 97
== END 2021-05-12 15:20 | disposition home or self-care (01) ==
LOC: SDCO 11:00
DX: A63.0 Anogenital (venereal) warts (principal); J44.9 Chronic obstructive pulmonary disease, unspecified; E11.40 Type 2 diabetes mellitus with diabetic neuropathy, unspecified; I10 Essential (primary) hypertension; E66.9 Obesity, unspecified; Z85.6 Personal history of leukemia; E78.00 Pure hypercholesterolemia, unspecified; K21.9 Gastro-esophageal reflux disease without esophagitis; Z20.822 Contact with and (suspected) exposure to COVID-19; I25.10 Atherosclerotic heart disease of native coronary artery without angina pectoris; Z79.899 Other long term (current) drug therapy; Z87.891 Personal history of nicotine dependence; Z85.07 Personal history of malignant neoplasm of pancreas
CPT/HCPCS: C1769; C1894; J0690; J2704; J3010; J7030

== ENCOUNTER 2022-02-02 06:55 | Day surgery (SDC) | payer OTHER ==
[~2022-02-02] VITALS: Ht 185.4 cm; Wt 120.0 kg
[~2022-02-02 06:55] MED LIST changes: +MSM1000 MG PO
[2022-02-02] MEDS ORDERED: FARXIGA10 PO (08:22)
[2022-02-02] MEDS ORDERED: UROCIT-K 5540 MG/TAB PO (08:25)
[2022-02-02] MEDS ORDERED: VOLTAREN GEL 1%1 TU TP (08:33)
[2022-02-02] MEDS ORDERED: TYLENOL 325MG325 MG PO (08:34)
[2022-02-02 08:40] VITALS: BP 125/67; PULSE 62; TEMP 98
--- NOTE | 2022-02-02 10:37 | NUR ---
Initial visit; Patient thanked Dining Room Cashier for looking in on him and offering prayer and God's blessings and encouragement regarding his upcoming surgical procedure.
[2022-02-02 11:30] VITALS: BP 140/75; PULSE 59; TEMP 97.4
[2022-02-02 11:45] VITALS: BP 136/62; PULSE 59
[2022-02-02 12:00] VITALS: BP 139/64; PULSE 55
--- NOTE | 2022-02-02 13:20 | NUR ---
Pt returned to bay 7 at 1130. A&O. Given muffin and juice per request. VSS-see flowsheet. Patent indwelling catheter in place, with stat lock. Tolerated oral intake. IV removed with catheter tip intact and pressure dressing applied. Pt dressed independently. DC teaching completed, pt verbalized understanding. Pt taken via wheelchair to private vehicle with Maria Isabel-pts ex to transport pt home.
== END 2022-02-02 13:20 | disposition home or self-care (01) ==
LOC: SDCO 06:55
DX: A63.0 Anogenital (venereal) warts (principal); N35.919 Unspecified urethral stricture, male, unspecified site; N20.1 Calculus of ureter; Z87.891 Personal history of nicotine dependence
CPT/HCPCS: C1769; C1894; J0690; J1100; J1885; J2405; J2704; J3010; J7030

== ENCOUNTER → 2024-01-30 | Outpatient (CLI) | payer MEDICARE, OTHER ==
[~2024-01-30] MED LIST changes: +CIPRO 500MG TA500 MG PO; +EFUDEX TOP; +FARXIGA10 PO; +OPTIVE SENSITI0.4 ML OP; +TRIAD WOUND CAR1 GEL TOP; +TYLENOL 325MG325 MG PO; +TYLENOL 500MG500 MG PO; +UROCIT-K 5540 MG/TAB PO; +VOLTAREN GEL 1%1 TU TP
== END ==
LOC: COL.LAB 13:00
DX: Z01.812 Encounter for preprocedural laboratory examination (principal); Z11.52 Encounter for screening for COVID-19

== ENCOUNTER 2024-06-08 10:05 | Day surgery (SDC) | payer MEDICARE, OTHER ==
[~2024-06-08] VITALS: Ht 185.4 cm; Wt 106.6 kg
[~2024-06-08 10:05] MED LIST changes: +Lidocaine PF 2% (20 MG/ML) 5 ML VIAL ONE; +Ondansetron 4 MG/2 ML VIAL ONE; +fentaNYL 50 MCG/ML 2 ML VIAL ONE
[2024-06-08 10:54] VITALS: BP 143/74; PULSE 84; TEMP 97.6
[2024-06-08] MEDS ORDERED: LR 1,000 ML IV SCH (11:45)
[2024-06-08] MEDS ORDERED: HCTZ 25MG TAB25 MG PO (11:49)
[2024-06-08] MEDS ORDERED: NORVASC 10MG10 MG PO (11:49)
[2024-06-08] MEDS ORDERED: AMOXIL125 MG PO (11:50)
[2024-06-08] MEDS ORDERED: fentaNYL 50 MCG/ML 2 ML VIAL ONE (12:03)
[2024-06-08] MEDS ORDERED: Lidocaine PF 2% (20 MG/ML) 5 ML VIAL ONE (12:03)
--- NOTE | 2024-06-08 12:25 | NUR ---
Pt admitted to [facility] bay 3 at 1043. Admission assessments complete. Consents signed. Rodo BARROSO updated on need for Anesthesia orders, LR order given. Blood sugar obtained. Medications, allergies, and pharmacy confirmed. 20G IV inserted into left wrist, LR infusing without difficulty. Pt ambulates with cane and steady gait. Hearing aide in left ear. Dressing noted to left lateral foot/heel. Pt reports that this is a "diabetic foot ulcer" Does not want this nurse to take dressing off, reporting that he changed it prior to coming and it is fine. Cart in low position, call light within reach. Alert, oriented 4.
[2024-06-08] MEDS ORDERED: fentaNYL 50 MCG/ML 1 ML SYRINGE/VIAL [PACU/SDC ONLY] IV PRN (13:30)
[2024-06-08] MEDS ORDERED: HYDROmorphone 1 MG/1 ML SYRINGE [PACU/SDC ONLY] IV PRN (13:30)
[2024-06-08] MEDS ORDERED: hydrALAZINE 20 MG/ML 1 ML VIAL IV PRN (13:30)
[2024-06-08] MEDS ORDERED: Ondansetron 4 MG/2 ML VIAL IV PRN ×2 (13:30→14:00)
[2024-06-08] MEDS ORDERED: Acetaminophen 325 MG TAB PO PRN (14:00)
[2024-06-08] MEDS ORDERED: Naloxone 0.4 MG/ML VIAL IV PRN (14:00)
[2024-06-08] MEDS ORDERED: Hyoscyamine 0.125 MG Sublingual TAB SL PRN (14:00)
[2024-06-08 14:40] VITALS: BP 170/70; PULSE 57; TEMP 98.1
[2024-06-08] MEDS ORDERED: Acetaminophen 500 MG TAB PO SCH (14:50)
[2024-06-08 14:55] VITALS: BP 163/70; PULSE 59
[2024-06-08 15:10] VITALS: BP 168/68; PULSE 63
--- NOTE | 2024-06-08 15:12 | NUR ---
Pt returns to [facility] [place] [facility] [place] PACU via cart. Bedside handoff received from JANAK Daly. IV fluids infusing through left wrist IV site without complications. Muffins and grape juice given. Daniels bag, cap, and leg bag sent with patient. Daniels teaching given, patient reports he has had several daniels catheters in the past. Discharge instructions and education given to patient. Questions answered. JANAK Daly, reports that patients ride will be here closer to 3:30. Cart in low position. Call light within reach.
--- NOTE | 2024-06-08 15:43 | NUR ---
Patient denies complaints. IV removed. Jhaveri catheter draining clear yellow urine. Pt down to rides car via w/c at 1540.
== END 2024-06-08 15:40 | disposition home or self-care (01) ==
LOC: SDCO 10:05
DX: A63.0 Anogenital (venereal) warts (principal); R30.0 Dysuria; R82.81 Pyuria; E11.40 Type 2 diabetes mellitus with diabetic neuropathy, unspecified; E66.9 Obesity, unspecified; Z85.46 Personal history of malignant neoplasm of prostate; Z85.6 Personal history of leukemia; Z85.828 Personal history of other malignant neoplasm of skin
CPT/HCPCS: J0360; J0690; J2405; J2704; J3010; J7120